=== PATIENT | female | born 1965 | race Hispanic/Latino ===

== ENCOUNTER 2016-08-08 06:00 | Inpatient (IN) | payer OTHER ==
[2016-08-08] VITALS (13 sets, daily range): BP systolic 110–137; BP diastolic 57–75; PULSE 81–102; RESP 8–22; O2SAT 93–100
[~2016-08-08] VITALS: Ht 157.5 cm; Wt 67.0 kg
[2016-08-08] MEDS: Lactated Ringer's 1,000 ML IV SCH ×3 (05:00→06:20)
[~2016-08-08 06:00] MED LIST: CeFAZolin Inj 2 GM in IV Premix 1 EACH IV ONE; GLUC1CAP13 PO; MULT-1018 PO; NAPR250T PO; Vancomycin Inj 1,000 MG in IV Premix 1 EACH IV ONE; vitamin d3
[2016-08-08] MEDS ORDERED: ACET325T51 PO (06:18)
[2016-08-08] MEDS ORDERED: diphenhydrAMINE 25 mg Capsule PO ONE (07:15)
[2016-08-08] MEDS ORDERED: MetoCLOpramide 5 mg/mL 2 mL Inj IVPUSH PRN (07:25)
[2016-08-08] MEDS ORDERED: Lactated Ringer's 1,000 ML IV SCH (07:25)
[2016-08-08] MEDS ORDERED: Dexamethasone 4 mg/mL Inj IVPUSH PRN (07:25)
[2016-08-08] MEDS ORDERED: Lactated Ringer's 500 ML IV PRN (07:25)
[2016-08-08] MEDS ORDERED: Atropine 0.4 mg/mL Inj IVPUSH PRN (07:25)
[2016-08-08] MEDS ORDERED: Ondansetron 2 mg/mL 2 mL Inj IVPUSH PRN ×2 (07:25→10:05)
[2016-08-08] MEDS ORDERED: fentaNYL-PF 50 mCg/mL 2 mL Inj IVPUSH PRN (07:25)
[2016-08-08] MEDS ORDERED: EPHEDrine Sulfate 50 mg/mL Inj IVPUSH PRN (07:25)
[2016-08-08] MEDS ORDERED: HYDROmorphone 1 mg/mL Inj IVPUSH PRN ×2 (07:25→10:05)
[2016-08-08] MEDS ORDERED: Phenylephrine 10,000 mCg/mL Inj IVPUSH PRN (07:25)
[2016-08-08] MEDS ORDERED: Labetalol 5 mg/mL 4 mL Inj IV PRN (07:25)
--- NOTE | 2016-08-08 07:25 | PCM.HPANE ---
Patient Data Date of Service: Aug 08, 2016 Surgeon Admitting Provider: Attending Provider:Wayne Garcia DO Primary Care Physician:Paulina Quiñonez MD Other Provider: Reason for Visit Right Hip Arthritis Ht/WT & BMI Height (Feet): 5 Height (Inches): 2 Weight (Kilograms): 67 Body Mass Index 27.00 Allergies Coded Allergies: tramadol (Verified Allergy, Unknown, depression, 08/03/16) hydrocodone (Verified Adverse Reaction, Intermediate, 04/14/15) HEADACHE Past Anesthesia History Anesthesia History: Denies:: Abnormal Airway, Anesthesia Reactions, Difficult Intubation Diabetes History Hx Diabetes?: No MRSA MRSA: No Medications Hypertension Medication: No Home Meds Incl Beta Marium: No Reported Medications Acetaminophen 325 Mg [id number] Mg PO Q4H PRN For Fever Ref 0 08/08/16 Multivitamin (Multi Vitamin Daily)1 Each Tablet1 Each PO DAILY 30 Days Ref 0 08/03/16 Naproxen 250 Mg [id number] Mg PO BID PRN For Pain Ref 0 08/03/16 Gluc HCl/Csa/Cyrus Hy/Hyalur AC (Glucosamine Chondroitin Cap)1 Each Capsule4 Each PO DAILY 08/03/16 Discontinued Reported Medications [vitamin d3] No Conflict CheckUnknown Dose DAILY 08/03/16 History History of ENT Problems?: No HEENT History: Denies:: Abnormal Airway Cataracts Difficult Intubation Dysphagia Glaucoma Hearing Problem Sinus Problem TMJ Teeth Condition: Missing Teeth Hx of Heart Problems?: No Cardiovascular History: Denies:: AICD Abdominal Aortic Aneurism Atrial Fibrillation Chest Pain Congestive Heart Failure Coronary Artery Disease Edema Heart Murmur Hypertension Irregular Heartbeat Pacemaker Peripheral Vascular Rheumatic Fever Hx of Respiratory Problem?: No Respiratory History: Denies:: Asthma COPD Emphysema Oxygen Administration Pneumonia Pulmonary Embolism Tuberculosis Use of C-PAP Machine Use of Inhalers / NEBS Neurological History: Denies:: Alzheimer's Disease CVA Dementia Dizziness Headaches Multiple Sclerosis Parkinson's Disease Seizures TIA Hx of GI Problems?: No Gastrointestinal History: Denies:: Cirrhosis Gall Bladder Disease Gastroesphageal Reflux Gastrointestinal Bleeding Heartburn Hepatitis Hiatal Hernia Liver Disease Rectal Bleeding Hx of Problems?: No Genitourinary History: Denies:: Kidney Stones Urinary Tract Infection (remote hx of infections, none currently) Female Hx: Denies:: Currently (HX TUBAL LIGATION) Problems with Breasts? Skin History: Denies:: History Skin Disorders? Pressure Ulcers Hx Musculoskeletal Problems?: Yes Musculoskeletal History: Positive for:: Musculoskeletal Trauma (right hip current admission problem) Osteoarthritis Denies:: Back Injury Fibromyalgia Joint Replacement Myasthenia Gravis Rheumatoid Arthritis Hx of Psycho/Social Problems?: No Psycho Social History: Denies:: Anxiety Hx Depression Hx Surgeries?: Yes (c sections x 3, tubal ligation) Hx Any Other Health Problems?: Yes Other History: Denies:: Cancer Thyroid Disease History Blood Transfusions: Positive for:: Accept Blood Products? Denies:: Blood Transfusions Hx Diabetes: No Hx Alcohol Use: NoHx Substance Use: No Smoking Status: Unknown if Ever Smoker Have You Smoked inLast 12 mo: No Stop/Bang Treated for Sleep Apnea?: No Do You Have a CPAP Machine?: No S-Snoring: Do You Snore Loudly: No T-Tired: feel tired, fatigued: No O-Obsered: Observed not breath: No P-Blood Pressure: treated: No B- Body Mass Index > 35 kg/m2: No A- Age over 50: No N- Neck Large Circumference: No G- Gender Male: No GAGAN Total Score: 0 GAGAN Risk Assessment: Low Risk, <3 Yes Risk Assessment Category Category 1A: Patient has history of documented sleep apnea, and HAS NOT received any narcotic, sedative or anesthesia administration during this stay. Category 1B: Patient has history of documented sleep apnea, and HAS received any narcotic , sedative or anesthesia administration during this stay Category 2: Patient has SUSPECTED Obstructive Sleep Apnea, and HAS received any narcotic , sedative or anesthesia administration during this stay. Category 3: Patient has SUSPECTED Obstructive Sleep Apnea and HAS NOT received narcotic, sedative or anesthesia administration during this stay. Category 4: Outpatient in Procedural Areas with known sleep apnea or who screen positive for High Risk via the STOP/BANG questionnaire. Exam Exam Vital Signs Vital Signs Date Time Temp Pulse Resp B/P Pulse Ox O2 Delivery O2 Flow Rate FiO2 08/08/16 06:39 81 17 137/66 100 Room Air General Appearance: Alert, Oriented X3, Cooperative (communication via cooker sulfite) HEENT/AIRWAY: MP 2 Lungs: Clear to Auscultation, Clear to Percussion, Normal Air Movement Heart: Normal S1, Normal S2 Meds/Labs/Diagnostics Admission Meds Current Medications Vancomycin/0.9 % Sod Chloride 1000 mg/Premix 200 ml @ 133.333 mls/hr PREOP ONCE IV Last administered on 08/08/16 06:35; Start 08/08/16 at 06:00; Stop at 07:29 Lactated Ringer's (Lr) 1,000 ml @ 120 mls/hr Q8H20M IV Last administered on 06:15; Start 08/08/16 at 05:00; Stop 08/08/16 at 13:19 Diphenhydramine HCl (Benadryl) 12.5 mg ONCE ONCE PO Last administered on 07:20; Start 08/08/16 at 07:15; Stop 08/08/16 at 07:16; Status UNV Plan Impression Patient chart reviewed, patient interviewed and anesthestic plan with risks, benefits, and alternatives discussed, and informed consent obtained. NPO Status: 1930 08/07/16 ASA Physical Status: ASA1 Normal Healthy Anesthetic Plan: GA Bene/Risks/Altern/Consents: Yes (Pt refuses SAB) HP Complete Prior to Induction: Yes Ford Sykes DO Aug 08, 2016 07:25
[2016-08-08] MEDS ORDERED: 0.9% Sodium Chloride 100 ML ONE ×2 (07:56→08:00)
[2016-08-08] MEDS ORDERED: Bupivacaine Liposome 1.3% 20 mL Inj ONE (07:58)
[2016-08-08] MEDS ORDERED: Tranexamic Acid 100 mg/mL 10 mL Inj ONE (07:59)
[2016-08-08] MEDS: Tranexamic Acid 100 mg/mL 10 mL Inj ONE ×2 (08:15→09:18)
[2016-08-08] MEDS ORDERED: Bupivacaine Liposome 1.3% 20 mL Inj INFILTRATE ONE (09:00)
[2016-08-08] MEDS ORDERED: Bupivacaine 0.5%/EPI 50 mL Inj INFILTRATE ONE (09:00)
[2016-08-08] MEDS ORDERED: 0.9% Sodium Chloride 10 mL Inj INFILTRATE ONE (09:00)
[2016-08-08] MEDS ORDERED: Lactated Ringer's 1,000 ML IV ONE (09:30)
[2016-08-08] MEDS ORDERED: diphenhydrAMINE 25 mg Capsule PO PRN (10:05)
[2016-08-08] MEDS ORDERED: Polyethylene Glycol (PEG) 17 Gm Powder PO PRN (10:05)
[2016-08-08] MEDS ORDERED: Magnesium Hydroxide 10 mL Oral Concentration PO PRN (10:05)
[2016-08-08] MEDS: 0.9% Sodium Chloride 1,000 ML IV SCH ×2 (11:03→19:36)
--- NOTE | 2016-08-08 11:20 | DRSVH ---
PROCEDURE: X-RAY PELVIS W/LAT HIP (RT) ([id number]) INDICATIONS: post op TECHNIQUE: AP pelvis and lateral view of the right hip acquired. COMPARISON: [facility], , XR PELVIS W LATERAL HIP RT, 07/17/2016, 11:59. FINDINGS: Bones: Patient is status post right hip arthroplasty, with hardware components in expected positions . The hip joint appears congruent. The visualized bony structures appear intact. Soft tissues: Overlying postoperative changes are noted. No suspicious soft tissue densities. IMPRESSION: Status post right hip arthroplasty as above. Dictated by: Lala Baer M.D. on 08/08/2016 at 11:18 Approved by: Lala Baer M.D. on 08/08/2016 at 11:19
--- NOTE | 2016-08-08 11:34 | OP ---
[address] [address] OPERATIVE REPORT PATIENT: BRAYDEN DICK : 1965 MR#: [id number] ADMIT: 08/08/2016 JOB ID: [id number] DATE OF SURGERY: 08/08/2016 PREOPERATIVE DIAGNOSIS(ES): Right hip degenerative joint disease. POSTOPERATIVE DIAGNOSIS(ES): Right hip degenerative joint disease. PROCEDURE: Right total hip arthroplasty. SURGEON: Wayne Garcia DO LEASE ADMINISTRATION SUPERVISOR: Trinity Sykes PA-C and Cortney Mohan DO INDICATIONS: The patient is a 50-year-old female with right hip severe degenerative joint disease who had failed conservative measures including cortisone injections, anti-inflammatories, and pain medications, who wished to proceed with a right total hip arthroplasty. We discussed the risks, benefits, and possible complications of surgery through an engineering illustrator. All questions were answered and she wished to proceed. A cardiovascular surgical tech was required for the successful completion of this procedure. PROCEDURE: Patient is brought to the operating room. She was given a preoperative antibiotic as well as 1 g TXA preoperative and placed comfortably into the lateral decubitus position. The right hip was sterilely prepped and draped. An incision was made centered over the greater trochanter in line with the femur. Dissection was carefully carried through the subcutaneous tissue. Electrocautery was used for hemostasis. A split was made in the iliotibial band in line with the skin incision. The Charnley retractor was then placed. A split was then made in the gluteus medius, between the junction of the anterior 1/3 and posterior 2/3, and Hohmann retractors were placed on either side of the femoral neck. A small triangular portion of capsule was then removed and the anterior sleeve of tissue was released off of the femur down to a point just distal to vastus tubercle. The hip was then dislocated and a provisional neck cut was made about just below a fingerbreadth above the level of the lesser trochanter as the patient was very small statured. The femur was then prepared beginning with the box osteotome and canal seeker. Her femur was quite small and could only be broached up to a size zero stem. Next, the acetabulum was addressed. Anterior and posterior acetabular retractors were placed at the 3 o'clock and 9 o'clock positions respectively. The pulvinar was removed. 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 A 48 shell was chosen. This was impacted into position and further secured with a single superior dome screw, which had excellent fixation. We then trialed the hip and elected to go with a 36 neutral liner and 36 1.5 head with the zero stem. This allowed for excellent range of motion, great stability, and equal leg length. I also removed some osteophytes off the inferior and anterior acetabulum to help promote range of motion. The components were impacted into position and we elected to use a ceramic head. The hip was located again and had excellent range of motion. It was irrigated and then closed with #5 Ethibond to repair the capsule and repair the gluteus medius. The remainder of the gluteus medius and vastus lateralis was repaired with #1 Surgilon. The iliotibial band was repaired with a running #1 Surgilon and running 0-Vicryl. The subcu was closed with 2-0 V-Shea the skin was closed with a running subcuticular 3-0 V-Shea. A combination of Exparel mixed with Marcaine and saline was added deep as well as superficial for local anesthesia and sterile dressings were applied. Patient tolerated the procedure well. Blood loss was 300 cc. Postop per protocol. Have the patient weightbear to tolerance. Use a walker for ambulation. Avoid any active hip abduction for six weeks postoperatively. Plan for aspirin for DVT prophylaxis and Percocet for pain as she is unable tolerate Vicodin or tramadol. MTDD
--- NOTE | 2016-08-08 11:38 | PCM.ANEP1 ---
Post Anesthesia Phase 1 PACU Phase 1 Assessment Date of Service: Aug 08, 2016 Vital Signs Vital Signs Date Time Temp Pulse Resp B/P Pulse Ox O2 Delivery O2 Flow Rate FiO2 08/08/16 10:58 100 22 115/61 94 Room Air 08/08/16 10:51 102 16 117/57 97 Room Air 08/08/16 10:44 95 9 137/60 93 Room Air 08/08/16 10:25 88 10 110/62 100 Simple Mask 10 08/08/16 10:20 87 11 118/68 100 Simple Mask 10 08/08/16 10:15 89 9 123/64 100 Simple Mask 10 08/08/16 10:10 91 8 112/61 99 Simple Mask 10 08/08/16 10:05 36.3 93 11 115/58 99 Simple Mask 10 08/08/16 06:39 81 17 137/66 100 Room Air Anesthetic Administered: GA Level of Alertness: Awake, talking DIANE's with Equal Strength: Yes Pain: No Airway Device: Nasal Airway Oxygen Delivery: Simple Mask (6l) Lungs: Clear to Auscultation, Clear to Percussion, Normal Air Movement Dermatome Level: Full Sensation Ford Sykes DO Aug 08, 2016 11:38
[2016-08-08] MEDS ORDERED: Propofol 10,000 mCg/mL 20 mL Inj ONE (12:17)
[2016-08-08] MEDS ORDERED: Rocuronium 10 mg/mL 5 mL Inj ONE (12:17)
[2016-08-08] MEDS ORDERED: fentaNYL-PF 50 mCg/mL 2 mL Inj ONE (12:17)
[2016-08-08] MEDS ORDERED: Ondansetron 2 mg/mL 2 mL Inj ONE (12:17)
[2016-08-08] MEDS ORDERED: Dexamethasone 4 mg/mL Inj ONE (12:17)
[2016-08-08] MEDS ORDERED: HYDROmorphone 2 mg/mL Inj ONE (12:17)
[2016-08-08] MEDS ORDERED: EPHEDrine/NS 5 mg/mL 5 mL Syringe ONE (12:17)
--- NOTE | 2016-08-08 13:30 | PCM.ANEP2 ---
Post Anesthesia Evaluation ASA/CMS Post Anesthesia Date of Service: Aug 08, 2016 VS in Patient's Normal Range?: Yes Resp Stable; Airway Patent?: Yes CV Function & Hydration Stable: Yes Mental Status Recovered?: Yes Pain control Satisfactory?: Yes N/V Control Satisfactory?: Yes Ford Sykes DO Aug 08, 2016 13:30
--- NOTE | 2016-08-08 14:33 | NUR ---
Post op note- Received patient from PACU. Awake. Denies pain. Right hip dressing dry and intact. Patient complained of decreased sensation in lower extremity. She is able to feel me touch her feet, and has good pulses and capillary refill. Explained to patient that she had local anesthesia, and that it may take a while for it to wear off. Tolerating fluids without nausea. Oriented to room, call light, etc.
[2016-08-08] MEDS ORDERED: CeFAZolin Inj 2 GM in Dextrose 5% 50 ML IV ONE (16:30)
[2016-08-08] MEDS ORDERED: CeFAZolin Inj 2 GM in IV Premix 1 EACH IV SCH (16:30)
[2016-08-08] MEDS: Sodium Chloride LOK Flush 10 mL Syringe IV SCH (16:30)
[2016-08-08] MEDS: CeFAZolin Inj 2 GM in Dextrose 5% 50 ML IV SCH (16:58)
[2016-08-08] MEDS: Senna-Docusate 8.6-50 mg Tablet PO SCH (19:36)
[2016-08-09] MEDS: Sodium Chloride LOK Flush 10 mL Syringe IV SCH ×4 (00:39→22:32)
[2016-08-09] MEDS: CeFAZolin Inj 2 GM in Dextrose 5% 50 ML IV SCH ×2 (00:39→10:44)
[2016-08-09 01:03] VITALS: BP 114/65; PULSE 90; RESP 20; O2SAT 95
--- NOTE | 2016-08-09 04:44 | NUR ---
Pain/activity Pt reporting pain up to 5/10 to right hip and started off taking 5mg Oxycodone and then after 2 hrs needed med for breakthrough pain, Ketorolac 30 mg IV given. Pain 4/10 this morning and pt request for 1 tab of oxycodone. Right hip bulky dressing is CDI, pt has wedge between legs, SCDs are on. Orthos intact. Pt has been up to BSC 1-2 PA with FWW, voiding without issues.
[2016-08-09 05:43] VITALS: BP 104/60; PULSE 85; RESP 20; O2SAT 97
[2016-08-09] MEDS: 0.9% Sodium Chloride 1,000 ML IV SCH ×2 (06:03→15:42)
[2016-08-09 06:52] LABS: BASOPHILS % (AUTO) 0.1 % (0-3); EOSINOPHILS % (AUTO) 0 % (0-5); MONOCYTES % (AUTO) 8.5 % (4-12); Mean Corpuscular Hemoglobin 27.3 pg (27.0-35.0); Mean Corpuscular Volume 83.7 fL (81-100); NEUTROPHILS % (AUTO) 79.3 % (40-74); Platelet Count 264 bil/L (150-400)
--- NOTE | 2016-08-09 08:39 | PCM.PNORTH ---
Subjective Date of Service: Aug 09, 2016 Visit Information: Reason for Visit Right Hip Arthritis Surgery/Surgery Date Post-Op Day # Date of Admission: Aug 08, 2016 at 12:16 Hospital Day # Subjective Status post day #1 right total hip arthroplasty. Patient states her pain is well-controlled on the Percocet. She understands that she will need to stay for 1-2 more days and this will be dependent upon her progression with physical therapy. Her plan is to go home. pressroom supervisor present during the encounter. Postop General: No Complaints, No Shortness of Breath, No Chest Pain Objective Exam Objective Patient is alert and oriented 3. Answering questions appropriately. Sitting up in bed and not in any acute distress today. Dressing is clean dry and intact. Patient able to wiggle toes. Calf is soft and non-tender, pulses intact, sensation is full. Hemoglobin 9.9, hematocrit 30.4. Vital Signs and I/O Vital Sign - Last Date Time Temp Pulse Resp B/P Pulse Ox O2 Delivery O2 Flow Rate FiO2 08/09/16 05:43 36.4 85 20 104/60 97 Room Air 08/08/16 10:25 10 Intake and Output 08/08/16 08/08/16 08/09/16 Cumulative From/Thru 15:00 23:00 07:00 08/03/16 14:37 - 08/09/16 05:34 Intake Total 500 ml 1350 ml 50 ml 3125 ml Output Total 300 ml 900 ml 1200 ml Balance 200 ml 450 ml 50 ml 1925 ml Intake Oral 800 ml 800 ml IV Total 500 ml 550 ml 50 ml 2325 ml Output Urine Total 900 ml 900 ml Estimated Blood Loss 300 ml 300 ml # Bowel Movements 0 0 Lab & Micro Results Laboratory Tests Test 08/09/16 06:00 White Blood Count 13.6th/mm3 (3.8-10.1) Red Blood Count 3.63mil/mm3 (3.90-5.20) Hemoglobin 9.9g/dL (12.0-15.6) Hematocrit 30.4% (35.0-46.0) Mean Corpuscular Volume 83.7fL (81-100) Mean Corpuscular Hemoglobin 27.3pg (27.0-35.0) Mean Corpuscular Hemoglobin Concent 32.6% (32.0-37.0) Red Cell Distribution Width 13.0% (12.3-15.4) Platelet Count 264bil/L (150-400) Neutrophils (%) (Auto) 79.3% (40-74) Lymphocytes (%) (Auto) 11.8% (14-46) Monocytes (%) (Auto) 8.5% (4-12) Eosinophils (%) (Auto) 0% (0-5) Basophils (%) (Auto) 0.1% (0-3) Sodium Level 138mEq/L (134-144) Potassium Level 4.4mEq/L (3.5-5.2) Chloride Level 101mEq/L (97-108) Carbon Dioxide Level 23mmol/L (18-29) Blood Urea Nitrogen 14mg/dL (6-24) Creatinine 0.62mg/dL (0.57-1.00) Estimat Glomerular Filtration Rate 147mL/min (>59) Glucose Level 112mg/dL (60-99) Calcium Level 8.7mg/dL (8.5-10.1) Result Diagram: 08/09/16 0600 08/09/16 0600 Assessment & Plan Impression Status post day #1 right total hip arthroplasty. Patient doing very well. Problems: Plan Patient will begin working with physical therapy today. Patient will be weightbearing as tolerated with front wheeled walker and assist. No active abduction for first 6 weeks. Patient will continue to take Percocet for pain control here in the hospital. Does better with this than Vicodin. We will plan to change dressing tomorrow by PA. Patient may discontinue the Roman today. Anticipated the patient will remain in the hospital for 1-2 more days, once progressing well with physical therapy we will discharge to home. Westley Negron PA-C Aug 09, 2016 08:38
[2016-08-09 09:10] VITALS: BP 108/66; PULSE 74; O2SAT 98
[2016-08-09] MEDS: Senna-Docusate 8.6-50 mg Tablet PO SCH ×2 (09:22→20:08)
[2016-08-09 13:09] VITALS: BP 111/66; PULSE 75; RESP 15; O2SAT 97
--- NOTE | 2016-08-09 13:53 | NUR ---
Bowel P: Pt's last BM was prior to surgery 08/07/16. Currently POD#1, no flatus or stool. I: Pt scheduled stool softeners, and is OOB 1-2PA. Nursing encourages fluids for pt. E: Will continue with scheduled stool softeners per orders or until BM, and continue encouraging fluids.
--- NOTE | 2016-08-09 15:33 | NUR ---
Social Work-assessment: Data:EMR reviewed. Pt is a 50 y/o female who was admitted on 08/08/16 for right hip arthritis per H&P. Pt's insurance is [employer] and PCP is Paulina Quiñonez MD. EMR reviewed. SW met with pt and family at bedside to discuss discharge planning, SW role explained. Pt is alert and oriented x3. Pt resides at home with her and family where she remains independent with ADLS. Pt uses a fww at baseline and does drive. Pt has no HH or SNF history. Pt has no half-way care insurance or VA benefits. SW discussed DPOA/ advanced directive, pt states she has not completed this paperwork has been provided. PT has seen pt and recommending home with outpt PT. Pt is aware and will set this up. Pt requesting a BSC at discharge. SW to discuss with Ortho for RX for BSC. Pt's family to provide transport home when medically stable. SW will continue to follow. Assessment:pt who is independent at baseline. Plan:Pt to discharge home when medically stable via POV. Pt to return home with outpt PT services. SW to ask ortho for RX for BSC. SW will continue to follow. ELLEN Rivera
--- NOTE | 2016-08-09 15:44 | NUR ---
ACTIVITY Patient worked with therapy x2 today. 1 person assist with FWW. Has been getting up to BSC. Hip adductor pillow in place and reviewed hip precautions with patient. Pain has been managed well with oxycodone 5mg tabs. Pre-medicated prior to therapy sessions. Continue hourly monitor.
[2016-08-09] MEDS: hydrOXYzine Pamoate 25 mg Capsule PO PRN ×2 (17:34→22:30)
[2016-08-09 20:05] VITALS: BP 131/81; PULSE 97; RESP 16; O2SAT 94
[2016-08-10] MEDS: 0.9% Sodium Chloride 1,000 ML IV SCH ×3 (02:03→22:03)
--- NOTE | 2016-08-10 03:24 | NUR ---
Pain Pt. is given 5mg PO oxycodone and 25mg PO Vistaril for pain only once so far tonight. Pt. has been sleeping throughout most of the shift. Will continue to monitor.
[2016-08-10 05:30] VITALS: BP 115/70; PULSE 74; RESP 16; O2SAT 95
[2016-08-10 06:08] LABS: BASOPHILS % (AUTO) 0.2 % (0-3); EOSINOPHILS % (AUTO) 0.5 % (0-5); MONOCYTES % (AUTO) 9.8 % (4-12); Mean Corpuscular Hemoglobin 26.6 pg (27.0-35.0); Mean Corpuscular Volume 84.6 fL (81-100); NEUTROPHILS % (AUTO) 65.1 % (40-74); Platelet Count 261 bil/L (150-400)
[2016-08-10] MEDS: Senna-Docusate 8.6-50 mg Tablet PO SCH ×2 (07:52→19:32)
[2016-08-10] MEDS: hydrOXYzine Pamoate 25 mg Capsule PO PRN (07:53)
[2016-08-10] MEDS: Sodium Chloride LOK Flush 10 mL Syringe IV SCH ×2 (07:53→16:39)
[2016-08-10 07:55] VITALS: BP 113/65; PULSE 83; RESP 16; O2SAT 94
--- NOTE | 2016-08-10 09:33 | PCM.PNORTH ---
Subjective Date of Service: Aug 10, 2016 Visit Information: Reason for Visit Right Hip Arthritis Surgery/Surgery Date Post-Op Day # Date of Admission: Aug 08, 2016 at 12:16 Hospital Day # Subjective Found patient awake and alert this morning and sitting up in chair beside her bed. Complains of some discomfort at the right leg but is in no obvious distress. Patient mentions she does experience some dizziness on rising and I have encouraged her to remain upright as much as possible. Complemented patient on her good performance on postop day #1 yesterday and encouraged her to try to do the same today. Advised that she may discharge to home today on postop day 2 if cleared by therapy or tomorrow on postop day 3 if she is not cleared by therapy. Patient does indicate she has a number of steps at her home and family history is made able discuss this with physical therapy and work on that today. They are sign language interpreter was used today during this encounter. Postop General: No Shortness of Breath, No Chest Pain, Good Appetite Pain Management: PO Objective Exam Objective Awake, oriented and alert 3 and pleasant. Found patient sitting up in chair at bedside. Postoperative dressings loosened but not soiled. Wound is observed today and found to be in very good condition with no drainage and no focal swelling or erythema. Due to patient's positioning today and imminent arrival of her breakfast I have not changed the dressing but nursing has agreed to do this when patient gets back to bed. I have asked nursing to leave Silverlon in place and cover with a Island dressing with ends trimmed for ventilation. Roman is absent. Calf and thigh are soft and nontender. NINA hose are absent. Vital Signs and I/O Vital Sign - Last Date Time Temp Pulse Resp B/P Pulse Ox O2 Delivery O2 Flow Rate FiO2 08/10/16 07:55 36.7 83 16 113/65 94 Room Air 08/08/16 10:25 10 Intake and Output 08/09/16 08/09/16 08/10/16 Cumulative From/Thru 15:00 23:00 07:00 08/03/16 14:37 - 08/10/16 06:06 Intake Total 880 ml 1120 ml 500 ml 5625 ml Output Total 1075 ml 400 ml 700 ml 3375 ml Balance -195 ml 720 ml -200 ml 2250 ml Intake Oral 800 ml 1120 ml 500 ml 3220 ml IV Total 80 ml 2405 ml Output Urine Total 1075 ml 400 ml 700 ml 3075 ml Estimated Blood Loss 300 ml # Voids 2 2 4 # Bowel Movements 0 0 Lab & Micro Results Laboratory Tests Test 08/10/16 05:55 White Blood Count 10.3th/mm3 (3.8-10.1) Red Blood Count 3.64mil/mm3 (3.90-5.20) Hemoglobin 9.7g/dL (12.0-15.6) Hematocrit 30.8% (35.0-46.0) Mean Corpuscular Volume 84.6fL (81-100) Mean Corpuscular Hemoglobin 26.6pg (27.0-35.0) Mean Corpuscular Hemoglobin Concent 31.5% (32.0-37.0) Red Cell Distribution Width 13.3% (12.3-15.4) Platelet Count 261bil/L (150-400) Neutrophils (%) (Auto) 65.1% (40-74) Lymphocytes (%) (Auto) 24.0% (14-46) Monocytes (%) (Auto) 9.8% (4-12) Eosinophils (%) (Auto) 0.5% (0-5) Basophils (%) (Auto) 0.2% (0-3) Sodium Level 138mEq/L (134-144) Potassium Level 4.3mEq/L (3.5-5.2) Chloride Level 102mEq/L (97-108) Carbon Dioxide Level 25mmol/L (18-29) Blood Urea Nitrogen 13mg/dL (6-24) Creatinine 0.52mg/dL (0.57-1.00) Estimat Glomerular Filtration Rate 180mL/min (>59) Glucose Level 106mg/dL (60-99) Calcium Level 8.3mg/dL (8.5-10.1) Result Diagram: 08/10/16 0555 08/10/16 0555 General Appearance: Alert, Oriented X3, Cooperative, No Acute Distress Extremities: No Compartment Syndrom Noted, Thigh & Calf Soft/Nontender Postop Sensory Motor: Distal Motor Intact, Movement in Toes, Distal Sensation Intact Activity: Activity per PT, Ambulate with PT (weightbearing as tolerated on the right lower extremity using front wheeled walker. No active abduction 6 weeks. ) Catheters: None Assessment & Plan Impression Patient is a pleasant 50-year-old female speaking individual whom has undergone a right total hip arthroplasty on 08/08/[address] Wayne Garcia. She has participated very well with physical therapy on postop day #1 and is on track for good recovery. Problems: Plan Postop day #1 from right total hip arthroplasty performed on 08/08/[address] Wayne Garcia. Weightbearing as tolerated on the right lower extremity using front will walker. No active abduction 6 weeks postop. No hip flexion past 90. No crossing of the legs. Continue formal physical therapy for mobility, gait and safety. Continue by mouth pain medication with Percocet 5/325 and Vistaril if needed. Continue DVT prophylaxis with ASA 325 mg EC by mouth twice a day for 6 weeks postop. Interoperative dressing is loose today and will be changed by nursing when patient is repositioned from chair to bed. Wound is inspected and found to be in very good condition. Roman catheter is absent. Nursing please measure and fit bilateral thigh-high NINA hose today. Order placed today. Follow-up in 2 weeks at [facility] orthopedic clinic on prearranged appointment for wound check and suture removal. Follow-up in 6 weeks at [facility] orthopedic clinic on prearranged appointment with Dr. Wayne Garcia with AP pelvis and right crosstable lateral hip x-ray on arrival. Anticipate discharge to home with family as caregivers on or before postop day # 3. VTE Prophylaxis: NINA Hose (bilateral thigh-high NINA hose are ordered today.), Other (ASA 325 mg EC by mouth twice a day 6 weeks postop for DVT prophylaxis.) Artie Suazo PA-C Aug 10, 2016 09:28
[2016-08-10] MEDS: oxyCODONE-Acetamin 5-325 mg Tablet PO PRN ×2 (11:07→16:38)
[2016-08-10 15:29] VITALS: BP 101/58; PULSE 81; RESP 18; O2SAT 97
--- NOTE | 2016-08-10 17:38 | NUR ---
POST-OP PROGRESS Percocet 1 tab PO has been effective for pain control. Tolerating liquids PO and her diet well. Denies nausea. No emesis noted. Denies SOB. Patient has been able to get OOB and ambulate in her room with SBA to 1 PA and the FWW. Tolerated activity fairly. Patient was able to sit in the chair for a couple of hours X 2 this shift. Patient stated that her dizziness is getting better. Voiding without any problems. Steri strips CDI. Dressing changed to an island dressing. SCD's, Nahid hose and wedge pillow are in place.
[2016-08-11] MEDS: Sodium Chloride LOK Flush 10 mL Syringe IV SCH ×2 (00:26→08:30)
[2016-08-11] MEDS: oxyCODONE-Acetamin 5-325 mg Tablet PO PRN ×3 (03:01→12:36)
[2016-08-11] MEDS: hydrOXYzine Pamoate 25 mg Capsule PO PRN (03:01)
--- NOTE | 2016-08-11 03:51 | NUR ---
Activity/Pain Patient up to bathroom this evening with SBA and FWW. Patient tolerated activity fairly well, but tired easily. Patient complains of pain, but denied need for pain medication first time up. Second time out of bed, patient complained of 5/10 hip pain and asked for pain medication. 1 tab percocet PO and 25mg Vistaril given. Upon reassessment, patient was sleeping and appeared comfortable. Will continue to monitor, and continue Q 1 hour checks.
[2016-08-11 05:29] VITALS: BP 117/79; PULSE 51; RESP 16; O2SAT 97
--- NOTE | 2016-08-11 06:23 | PCM.PNORTH ---
Subjective Date of Service: Aug 11, 2016 Visit Information: Reason for Visit Right Hip Arthritis Surgery/Surgery Date Post-Op Day # Date of Admission: Aug 08, 2016 at 12:16 Hospital Day # Subjective Patient is found awake this morning with no complaints of pain at this time. I have explained that we will discharge her today to home and patient and family are aware of this. I have described that we will send her home likely with home health physical therapy for a short time to be sure she is safe and mobile in her home. I have advised patient and family of precautions regarding no active abduction adduction, no flexion past 90 and no crossing of the legs. Family is working on stair training with patient and I believe they are all comfortable with discharge at this time. Postop General: No Complaints, No Shortness of Breath, No Chest Pain, Good Appetite Pain Management: PO Objective Exam Objective Alert and oriented 3 and pleasant. Postoperative dressing is clean dry and intact. Calf and thigh are soft and nontender. Toe wiggle and sensation are intact at right lower extremity distally. NINA hose have been fitted and patient is wearing these intermittently. Roman is absent. Vital Signs and I/O Vital Sign - Last Date Time Temp Pulse Resp B/P Pulse Ox O2 Delivery O2 Flow Rate FiO2 08/11/16 05:29 36.8 51 16 117/79 97 Room Air 08/08/16 10:25 10 Intake and Output 08/10/16 08/10/16 08/11/16 Cumulative From/Thru 15:00 23:00 07:00 08/03/16 14:37 - 08/11/16 05:43 Intake Total 640 ml 650 ml 6915 ml Output Total 700 ml 1300 ml 5375 ml Balance -60 ml -650 ml 1540 ml Intake Oral 640 ml 650 ml 4510 ml IV Total 2405 ml Output Urine Total 700 ml 1300 ml 5075 ml Estimated Blood Loss 300 ml # Voids 1 5 # Bowel Movements 0 Result Diagram: 08/10/16 0555 08/10/16 0555 General Appearance: Alert, Oriented X3, Cooperative, No Acute Distress Extremities: No Compartment Syndrom Noted, Thigh & Calf Soft/Nontender Postop Sensory Motor: Distal Motor Intact, Movement in Toes, Distal Sensation Intact Activity: Activity per PT, Ambulate with PT (weightbearing as tolerated on the right lower extremity using front wheeled walker. No active abduction 6 weeks. ) Catheters: None Assessment & Plan Impression Patient is a 50-year-old female who has performed adequately with physical therapy during her stay and is received a recommendation for discharge to home with home health. She has 2 family members in attendance in the room at all times and they are very helpful. Problems: Plan Postop day #3 from right total hip arthroplasty on 08/08/[address] Wayne Garcia. Weightbearing as tolerated on the right lower extremity using front will walker. No active abduction 6 weeks postop. No hip flexion past 90. No crossing of the legs. Recommendation from physical therapy is discharged home with home health PT for safety and mobility. Continue by mouth pain medication with Percocet 5/325 and Vistaril if needed. Continue DVT prophylaxis with ASA 325 mg EC by mouth twice a day for 6 weeks postop. Nursing will change dressing today prior to discharge and send patient home with 2-3 extra dressings.. Follow-up in 2 weeks at [facility] orthopedic clinic on prearranged appointment for wound check and suture removal. Follow-up in 6 weeks at [facility] orthopedic clinic on prearranged appointment with Dr. Wayne Garcia with AP pelvis and right crosstable lateral hip x-ray on arrival. Anticipate discharge to home with home health physical therapy with family as caregivers today on postop day 3, 08/11/2016 . VTE Prophylaxis: SCDs, NINA Hose (bilateral thigh-high NINA hose are ordered today.), Other (ASA 325 mg EC by mouth twice a day 6 weeks postop for DVT prophylaxis.) Artie Suazo PA-C Aug 11, 2016 06:23
--- NOTE | 2016-08-11 06:26 | PCM.DIORTH ---
Ortho Discharge Instruction Date of Service: Aug 11, 2016 Dates of Hospitalization Date of Hospital Admission Aug 08, 2016 at 12:16 Providers Admitting Physician: Wayne Garcia DO Primary Care Physician: Paulina Quiñonez MD Attending Physician: Wayne Garcia DO Diet Discharge Diet: No restrictions Activity Discharge Activity-General: Try not to overdue, Be up and about, Balance rest and activity, Ice incision 3-5 time/day for 20min, Activity as pain allows, Activity as energy allows, No driving while taking narcotic Right Lower Extremity: Weight Bearing as tolerated Discharge Assist Device: Front Wheeled Walker Dressing and Incisional Care Discharge Dressing Care: Keep dressing clean, dry & intact, Change soiled dressing Discharge Hygiene: May shower after (patient may shower after postop day #4 if wound is clean and dry with no drainage.), DO NOT soak incision under water, NO bathtub, hot tub or whirlpool Additional Instructions Discharge Instructions Weightbearing as tolerated on the right lower extremity using front will walker. No active abduction 6 weeks postop. No hip flexion past 90. No crossing of the legs. Recommendation from physical therapy is discharged home with home health PT for safety and mobility. Continue by mouth pain medication with Percocet 5/325 and Vistaril if needed. Continue DVT prophylaxis with ASA 325 mg EC by mouth twice a day for 6 weeks postop. Nursing will change dressing today prior to discharge and send patient home with 2-3 extra dressings.. Follow-up in 2 weeks at [facility] orthopedic clinic on prearranged appointment for wound check and suture removal. Follow-up in 6 weeks at [facility] orthopedic clinic on prearranged appointment with Dr. Wayne Garcia with AP pelvis and right crosstable lateral hip x-ray on arrival. Anticipate discharge to home with home health physical therapy with family as caregivers today on postop day 3, 08/11/2016 . Follow Up Plan Follow Up Plan Patient will be seen at 2 weeks, 6 weeks and 12 weeks postoperatively. Patient will be seen when necessary in the interim. Follow-up Provider (F9): Wayne Garcia DO Mid-level Provider (F9): Trinity Sykes PA-C Follow-up appointment: Weeks (Patient will be seen at 2 weeks, 6 weeks and 12 weeks postoperatively. Patient will be seen when necessary in the interim.) Call your provider for: Fever, Chills, Shortness of breath, Vomitting, Drainage at incision Artie Suazo PA-C Aug 11, 2016 06:26
[2016-08-11] MEDS ORDERED: ASPI325T32 PO (06:36)
[2016-08-11] MEDS ORDERED: OXYC5TAB72 PO (06:36)
[2016-08-11] MEDS ORDERED: HYDR-3797 PO (06:36)
[2016-08-11] MEDS ORDERED: OXYC1TAB24 PO (06:36)
--- NOTE | 2016-08-11 06:42 | PCM.DC.ORT ---
Discharge Summary Date of Service: Aug 11, 2016 Date of Hospital Admission: Aug 08, 2016 at 12:16 Date of Surgery: Sep 05, 2016 Date of Discharge: Aug 11, 2016 Reason for Hospitalization: Right hip osteoarthritis, severe Procedures Performed: Right total hip arthroplasty Hospital Course: Patient was admitted through preoperative care unit on 08/08/2016 and upon processing was taken to the operating room where her procedure was performed without incident. Upon awakening patient was taken to the postoperative care unit and after recovery from anesthesia was transferred to the orthopedic care unit where she participated well with physical therapy and received a recommendation for discharge to home with home health PT. Patient was subsequently discharged on 08/11/2016. Problems: (1) Hip arthritis Status: Acute ICD Code: M19.90 Disposition: Discharged to home on 08/11/2016 with home health physical therapy and family his caregivers. Orthopedic Follow up Plan: In Two Weeks in my clinic (Patient will be seen at 2 weeks, 6 weeks and 12 weeks postoperatively. Patient will be seen when necessary in the interim.) Discharge Instructions: Weightbearing as tolerated on the right lower extremity using front will walker. No active abduction 6 weeks postop. No hip flexion past 90. No crossing of the legs. Recommendation from physical therapy is discharged home with home health PT for safety and mobility. Continue by mouth pain medication with Percocet 5/325 and Vistaril if needed. Continue DVT prophylaxis with ASA 325 mg EC by mouth twice a day for 6 weeks postop. Nursing will change dressing today prior to discharge and send patient home with 2-3 extra dressings.. Follow-up in [address] [facility] orthopedic clinic on prearranged appointment for wound check and suture removal. Follow-up in 6 weeks at [facility] orthopedic clinic on prearranged appointment with Dr. Wayne Garcia with AP pelvis and right crosstable lateral hip x-ray on arrival. Anticipate discharge to home with home health physical therapy with family as caregivers today on postop day 3, 08/11/2016 . Management Plan: Patient will be seen at 2 weeks, 6 weeks and 12 weeks postoperatively. Patient will be seen when necessary in the interim. Aspirin (Aspirin) 325 Mg Tablet 325 MG PO BID Hydroxyzine Pamoate (HydrOXYzine Pamoate) 25 Mg Capsule 25 MG PO Q4-6H PRN PRN For Spasm and/or Restlessness Multivitamin (Multi Vitamin Daily) 1 Each Tablet 1 EACH PO DAILY oxyCODONE (oxyCODONE) 5 Mg Tablet 5 MG PO Q4-6H PRN PRN for breakthrough pain oxyCODONE-Acetaminophen 5-325 mg (oxyCODONE-Acetaminophen 5-325 mg) 1 Each Tablet 1 TAB PO Q4H PRN PRN For Severe Pain Artie Suazo PA-C Aug 11, 2016 06:42
[2016-08-11] MEDS: 0.9% Sodium Chloride 1,000 ML IV SCH (08:03)
[2016-08-11] MEDS: Senna-Docusate 8.6-50 mg Tablet PO SCH (08:22)
[2016-08-11 08:25] VITALS: BP 111/71; PULSE 81; RESP 16; O2SAT 94
--- NOTE | 2016-08-11 12:49 | NUR ---
DISCHARGE Percocet 1 tab PO has been effective for pain control. Tolerating liquids PO and her diet well. Denies nausea. No emesis noted. Up with SBA and the FWW in the room. Tolerating activity well. Steri strips CDI. Dressing changed prior to D/C. Voiding without any problems. Nahid kendrick in her BLE. IV d/cd. Discharge instructions, care notes and prescription was given to the patient and her daughter, who will be helping with her care. They both verbalized understanding. commercial lending relationship manager was at the bedside at all times for the discharge and all of their questions where answered with the auto technician mechanic in the room. Discharged to home with her daughter and all her personal belongings. (Copy of D/C is in the chart).
== END 2016-08-11 12:40 | disposition home health service (06) | DRG 470 ==
LOC: SAS 06:00 → OSC 12:16
PROVIDERS: ADMIT Orthopaedic Surgery; ATTEND Orthopaedic Surgery
PROC: 0SR903A Replacement of Right Hip Joint with Ceramic Synthetic Substitute, Uncemented, Open Approach (ICD-10-PCS; principal; 2016-08-08 07:30)
DX: M16.11 Unilateral primary osteoarthritis, right hip (principal)

== ENCOUNTER 2016-09-08 14:31 | Emergency (ER) | payer OTHER ==
[~2016-09-08] VITALS: Ht 152.4 cm; Wt 63.6 kg
[~2016-09-08 14:31] MED LIST changes: +ASPI325T32 PO; -CeFAZolin Inj 2 GM in IV Premix 1 EACH IV ONE; -GLUC1CAP13 PO; +HYDR-3797 PO; -NAPR250T PO; +OXYC1TAB24 PO; +OXYC5TAB72 PO; -Vancomycin Inj 1,000 MG in IV Premix 1 EACH IV ONE; -vitamin d3
[2016-09-08 14:34] VITALS: BP 124/83; PULSE 80; RESP 16; O2SAT 97
--- NOTE | 2016-09-08 15:53 | ED.REPORT ---
HPI-General Illness Date of Service Sep 08, 2016 ED Provider: Dr. Newsome. A 51 year old female presents to the ED complaining of right foot pain onset two weeks ago after the patient had right hip surgery. The pain is intermittent and is described as a pulling sensation, but is not described as spasms or tightness. A burning sensation in her right leg often accompanies these episodes. Additionally, the patient has also experienced intermittent pain in the calf of her right leg. She reports painful swelling in her right leg, but denies any pain in the surgical site. Associated symptoms include SOB when the patient wakes up from sleeping, describing that air feels like it is stuck in her chest and does not pass. She reports that when this happens, she needs to sit up for a while for air to start moving again. She normally sleeps all night on her back. Additionally, after she talks constantly ,the patient will feel like she needs to catch an extra breath. Nursing Notes Stated Complaint: RIGHT LEG/FOOT PAIN Chief Complaint: Extremity Trauma Nursing Notes Reviewed: Yes Allergies: Coded Allergies: tramadol (Verified Allergy, Unknown, depression, 09/08/16) hydrocodone (Verified Adverse Reaction, Intermediate, 09/08/16) HEADACHE Scheduled Aspirin (Aspirin) 325 Mg Tablet 325 MG PO BID Multivitamin (Multi Vitamin Daily) 1 Each Tablet 1 EACH PO DAILY Scheduled PRN Hydroxyzine Pamoate (HydrOXYzine Pamoate) 25 Mg Capsule 25 MG PO Q4-6H PRN PRN For Spasm and/or Restlessness oxyCODONE (oxyCODONE) 5 Mg Tablet 5 MG PO Q4-6H PRN PRN for breakthrough pain oxyCODONE-Acetaminophen 5-325 mg (oxyCODONE-Acetaminophen 5-325 mg) 1 Each Tablet 1 TAB PO Q4H PRN PRN For Severe Pain General Time Seen by MD: 15:52 Chief Complaint Other (Right foot pain) Hx Obtained From: Patient Arrived By: Walk-in Sudden in Onset?: No Onset Occurred: 1 week ago Symptom Duration: Intermittent Severity: Current: Moderate Severity: Maximum: Moderate Recent Healthcare: Recent doctor visit Similar Sx Previous: No Past Medical History Past Medical History Notes: Chronic neck and back pain. Past Medical History Pt denies hx of anxiety, CP and other cardiac problems except as marked. Reports: Hyperlipidemia Past Surgical History Right hip replacement 08/08/[address] Picco, was planned surgery and not from a fall. Tubal ligation. Reports: (x3) Smoking History Unknown if Ever Smoker Social History Other Social History: Ambulatory Status Independent Review of Systems Denies elevated heart rate. Full Review of Systems Respiratory: Reports: Shortness of breath Cardiovascular: Denies: Chest pain Musculoskeletal: Reports: Extremity pain (right foot.), Extremity swelling ( right lower extremity. ) Complete sys rev & neg: except as marked. Physical Exam Vital Signs Vital Signs Date Time Temp Pulse Resp B/P Pulse Ox O2 Delivery O2 Flow Rate FiO2 09/08/16 14:34 36.1 80 16 124/83 97 Room Air Initial VS: Reviewed Respiratory: Breath sounds normal (No wheezing.), Clear to auscultation, No respiratory distress Cardiovascular: Regular rate & rhythm (Not tachycardic.), Heart sounds normal, Intact distal pulses General/Constitutional: Awake, Alert Head / Eyes: Atraumatic, Normocephalic, PERRL, EOMI ENT: Atraumatic, Mucous membranes moist Neck: Atraumatic, No swelling Abdomen: No guarding, No rebound Wrist / Hand: No swelling, No edema Right hip incision is clean and dry and healing nicely. No redness or erythema into calves or feet. No extra swelling in feet. Neurologic: Oriented X3, Speech NL Interpretation & Diagnostics Interpretation & Diagnostics: PROCEDURE: US VEINOUS LEG DUPLEX UNILATERAL, RIGHT IMPRESSION: No evidence of deep venous thrombosis. Dictated by: Lala Baer M.D. on 09/08/2016 at 17:46 Approved by: Lala Baer M.D. on 09/08/2016 at 17:46 Lab Results Interpretation Lab Results Interpretation: u/s: no evidence of DVT in Right leg Re-Eval/Medical Decision Med Decision/Clinical Course No evidence of DVT or infection. Low risk for pulmonary embolism and history of feeling short of breath in the morning goes away shortly after she is up and moving about. Suspect that the pain she is experiencing is postoperative only. Source of Hx: Old records Time of Eval: 15:52 Re-Evaluation/Progress Note: Rechecked patient. Counseled Regarding: Diagnosis, Lab results, Need for follow-up, When/why to return to ED Discharge & Departure Primary Impression: Lower extremity pain Ruled Out: DVT (deep venous thrombosis), Cellulitis, Septic arthritis Disposition: Home Discharge Condition All VS Reviewed: Yes Condition: Improved Additional Instructions: Continue to use your pain medication for recovery from your recent surgery. There is no evidence of a blood clot, skin infection, joint infection, or other complication of your surgery. I hope that you heal quickly. If you continue to have pain, please follow-up with your orthopedic surgeon. Referrals: Paulina Quiñonez MD (PCP) Scribe Attestation Portions of this note were transcribed by Fredy Helms. I, Dr. Newsome personally performed the history, physical exam and medical decision-making; I reviewed and confirmed the accuracy of the information in the transcribed note. Signed by: Epifanio Piedra, 09/08/2016 1836. copies to: Paulina Quiñonez MD; Wayne Garcia Shawna L MD Sep 08, 2016 15:53 Fredy Helms Sep 08, 2016 16:30
--- NOTE | 2016-09-08 17:48 | DRSVH ---
PROCEDURE: US VEINOUS LEG DUPLEX UNILATERAL, RIGHT INDICATIONS: calf pain. 1 month post hip replacement TECHNIQUE: Real-time imaging, as well as color and pulse Doppler interrogation, were performed of the lower extr emity deep veins from the inguinal ligament to the popliteal fossa. COMPARISON: None. FINDINGS: The deep veins are normally compressible, and free of intraluminal thrombus. Color and pu lse Doppler demonstrate normal phasic intraluminal flow. There is normal augmentation response to di stal compression maneuver. IMPRESSION: No evidence of deep venous thrombosis. Dictated by: Lala Baer M.D. on 09/08/2016 at 17:46 Approved by: Lala Baer M.D. on 09/08/2016 at 17:46
== END 2016-09-08 18:05 | disposition home or self-care (01) ==
LOC: SED 14:31
DX: M79.661 Pain in right lower leg (principal); R06.02 Shortness of breath; E78.5 Hyperlipidemia, unspecified; Z79.82 Long term (current) use of aspirin; Z88.5 Allergy status to narcotic agent; Z96.641 Presence of right artificial hip joint